=== PATIENT | male | born 1985 | race Asian ===

== ENCOUNTER 2018-10-07 18:04 | Emergency (ER) | payer OTHER ==
[~2018-10-07] VITALS: Ht 170.2 cm; Wt 81.8 kg
[2018-10-07 18:10] VITALS: Ht 170.2 cm; Wt 81.8 kg
[2018-10-07] MEDS ORDERED: ALBUTEROL 0.083% (NEB) 2.5 MG/3 ML AMP HHN STA (18:46)
[2018-10-07] MEDS ORDERED: DEXAMETHASONE 4 MG TAB PO ONE (19:00)
[2018-10-07] MEDS ORDERED: IPRATROPIUM (NEB) 0.5 MG/2.5 ML AMP HHN ONE (19:00)
[2018-10-07] MEDS ORDERED: ALBU2.5V3 NEB (20:22)
[2018-10-07] MEDS ORDERED: PRED20TA PO (20:22)
[2018-10-07] MEDS ORDERED: AZIT250T PO (20:22)
--- NOTE | 2018-10-07 20:24 | ERD ---
ER Documentation Chief Complaint Chief Complaint asthma attack HPI 33-year-old male presents with wheezing and coughing productive cough worsening over last week. Has had tactile fevers at home but no measured temperature. Denies chest pain, vomiting, abdominal pain, diarrhea. He is out of his albuterol for his nebulizer. ROS All systems reviewed and are negative except as per history of present illness. Medications Home Meds Active Scripts Albuterol Sulfate* (Albuterol Sulfate* Neb) 0.083%-3 Ml Neb, 2.5 MG NEB Q4 PRN for SHORTNESS OF BREATH, #30 EA Prov:ROBIN DAMON MD 10/07/18 Prednisone* (Prednisone*) 20 Mg Tab, 40 MG PO DAILY for 4 Days, TAB Start October 08, 2018 Prov:ROBIN DAMON MD 10/07/18 Azithromycin* (Zithromax*) 250 Mg Tablet, 250 MG PO .ZPACK DIRECTED, #6 TAB TAKE 500 MG (2 TABS) THE FIRST DAY THEN 250 MG (1 TAB) DAYS 2-5 Prov:ROBIN DAMON MD 10/07/18 Allergies Allergies: Coded Allergies: No Known Allergy (Verified Allergy, Unknown, 03/24/07) PMhx/Soc Hx Respiratory Disorders: Yes (asthma) Hx Alcohol Use: No Hx Substance Use: No Hx Tobacco Use: No Smoking Status: Never smoker FmHx Family History: No diabetes, No coronary disease, No other Physical Exam Vitals Vital Signs Date Temp Pulse Resp B/P (MAP) Pulse Ox O2 O2 Flow FiO2 Time Delivery Rate 10/07/18 88 20 94 21 19:34 10/07/18 99.3 91 26 143/81 97 18:10 (101) Physical Exam Const: No acute distress Head: Atraumatic Eyes: Normal Conjunctiva ENT: Normal External Ears, Nose and Mouth. Neck: Full range of motion. No meningismus. Resp: Clear to auscultation bilaterally. Coarse breath sounds and wheezing diffusely. No rales or retractions. Cardio: Regular rate and rhythm, no murmurs Abd: Soft, non tender, non distended. Normal bowel sounds Skin: No petechiae or rashes Back: No midline or flank tenderness Ext: No cyanosis, or edema Neur: Awake and alert Psych: Normal Mood and Affect Results 24 hrs Current Medications Medications Dose Sig/Trent Start Time Status Last (Trade) Ordered Route PRN Stop Time Admin Dose Reason Admin 12 mg ONCE ONCE 10/07/18 DC 10/07/18 Dexamethasone PO 19:00 10/07/18 19:20 (Decadron) 19:01 Albuterol 5 mg ONCE STAT 10/07/18 DC 10/07/18 (Proventil HHN 18:46 10/07/18 19:34 0.083% (Neb)) 18:47 Ipratropium 0.5 mg ONCE ONCE 10/07/18 DC 10/07/18 [place] [facility]N 19:00 10/07/18 19:34 (Atrovent 19:01 0.02% (Neb)) Procedures/MDM Patient given albuterol and Atrovent treatment. He was given Decadron 12 mg by mouth. Patient presents with productive cough worsening with history of asthma. He has no signs of hypoxemia, rest or distress, signs of pneumonia on exam. Will treat empirically given the duration of symptoms with Zithromax, prednisone, continuation of Ventolin, primary care follow-up and return precautions. There is no evidence or signs of symptoms of DKA, sepsis, abdominal pain, cardiac chest pain. The patient was stable with no new complaints during the ER course. Clinically, there is no current evidence to suggest meningitis, sepsis, acute abdomen, pneumonia, stroke, acute coronary syndrome, pulmonary embolism, aortic dissection or any other emergent condition appearing to require further evaluation or hospitalization. Patient counseled regarding my diagnostic impression and care plan. Prior to discharge all questions answered. Pt agrees with treatment plan and understands strict return precautions. Pt is instructed to follow up with primary care provider within 24- 48 hours. Precautionary instructions provided including instructions to return to the ER if not improving or for any worsening or changing symptoms or concerns. Disclaimer: Inadvertent spelling and grammatical errors are likely due to [employer]/dictation software use and do not reflect on the overall quality of patient care. Also, please note that the electronic time recorded on this note does not necessarily reflect the actual time of the patient encounter. Departure Diagnosis: Primary Impression: Asthma Asthma severity: unspecified severity Asthma persistence: unspecified Asthma complication type: unspecified Qualified Codes: J45.909 - Unspecified asthma, uncomplicated Condition: Stable Patient Instructions: Bronchitis With Wheezing (Adult) Referrals: [facility] (PCP) Additional Instructions: Recheck for new worsening symptoms with primary care doctor. ROBIN DAMON MD Oct 07, 2018 20:24
[2018-10-07 20:37] VITALS: BP 128/80; PULSE 89; RESP 18
== END 2018-10-07 20:37 | disposition home or self-care (01) ==
LOC: FTE 18:04
DX: J45.901 Unspecified asthma with (acute) exacerbation (principal)
CPT/HCPCS: 94664; Z7502; Z7610